=== PATIENT | female | born 1970 | race Caucasian/White ===

== ENCOUNTER → 2017-07-04 | Outpatient (CLI) | payer OTHER ==
[~2017-07-04] MED LIST: CITA40TA4 PO; LEVO75TA3 PO; MELA5TAB15 PO; NAPR1TAB98 PO; NEXI20CA PO
[2017-07-04 13:55] LABS: AUTOMATED NEUTROPHIL # 6.3 TH/MM3 (1.8-7.7); BASOPHIL # 0.1 TH/MM3 (0-0.2); BASOPHIL % 0.8 % (0.0-2.0); EOSINOPHIL # 0.2 TH/MM3 (0-0.4); EOSINOPHIL % 2.2 % (0.0-4.0); HEMATOCRIT 35.5 % (35.0-46.0); HEMO FLAGS DIFF FINAL; LYMPHOCYTE # 3.2 TH/MM3 (1.0-4.8); MEAN CELL VOLUME 74.4 FL (80.0-100.0); MEAN CORPUSCULAR HEMOGLOBIN 23.7 PG (27.0-34.0); MEAN CORPUSCULAR HGB CONC 31.9 % (32.0-36.0); MONO % 6.8 % (0.0-8.0); NEUT % 60.2 % (16.0-70.0); PLATELET COUNT 290 TH/MM3 (150-450); RED BLOOD COUNT 4.78 MIL/MM3 (4.00-5.30); RED CELL DISTRIBUTION WIDTH 15.5 % (11.6-17.2); WHITE BLOOD COUNT 10.5 TH/MM3 (4.0-11.0)
[2017-07-04 14:15] LABS: BLOOD, URINE NEG (NEG); CALCIUM OXALATE CRYSTALS,URINE MANY /hpf; COMMENT (UR) CULT NOT INDICATED; CULTURE IF INDICATED CULT NOT INDICATED; GLUCOSE,URINE NEG (NEG); KETONE, URINE NEG (NEG); MUCUS URINE FEW /lpf (OCC); NITRITE,URINE NEG (NEG); PH, URINE 6.5 (5.0-8.5); SQUAMOUS EPITHELIAL CELL URINE 2 /hpf (0-5); URINE COLOR YELLOW (YELLW/STRAW)
[2017-07-04 14:35] LABS: BETA HCG QUANT LESS THAN 1 MIU/ML (0-5)
--- NOTE | 2017-07-04 15:44 | EKG ---
Date Performed: 07/04/2017 Time Performed: 12:47:00 PTAGE: 47 years EKG: Sinus rhythm NORMAL ECG NO PREVIOUS TRACING DOCTOR: Keron Norris Interpretating Date/Time 07/04/2017 15:42:32
== END ==
LOC: CPRE 13:04
PROVIDERS: ATTEND Obstetrics & Gynecology
DX: Z01.810 Encounter for preprocedural cardiovascular examination (principal); Z01.812 Encounter for preprocedural laboratory examination; N92.4 Excessive bleeding in the premenopausal period
CPT/HCPCS: 36415; 81001; 84702; 85025; 93005

== ENCOUNTER → 2017-07-08 | Day surgery (SDC) | payer OTHER ==
--- NOTE | 2017-07-07 09:44 | MH ---
cc: HENOK ASH M.D. DATE OF ADMISSION: 07/08/2017 ADMISSION DIAGNOSIS Perimenopausal menorrhagia. HISTORY OF PRESENT ILLNESS The patient is 47-year-old white female para 0 who had an Mirena IUD removed on 01/07/2017. FSH level indicated perimenopause. She reports since that time, light bleeding every two weeks, more night sweats, more hot flashes. She is now admitted for hysteroscopy, D&C. PAST MEDICAL HISTORY PREVIOUS SURGERY 1995 laparoscopic cholecystectomy. MEDICATIONS 1. Citalopram. 2. Wellbutrin. 3. Estrace vaginal cream. ALLERGIES None. SERIOUS MEDICAL ILLNESSES Anxiety depression. TRANSFUSIONS None. OB HISTORY None. SOCIAL HISTORY She is , works at [employer]. Alcohol, tobacco and drugs are none. FAMILY HISTORY Non-contributory. PHYSICAL EXAMINATION GENERAL: A well-nourished well-developed white female. VITAL SIGNS: Stable. HEENT: Exam is normal. CHEST: Clear. HEART: Regular rate. BREASTS: Symmetrical. ABDOMEN: Benign. PELVIC EXAM: Normal external genitalia and BUS. Vagina is normal. Cervix is normal. Uterus is normal size and shape, anterior. No adnexal masses. IMAGING STUDIES Her vaginal ultrasound from 06/30/2017 showed a uterus that measured 7.8 cm with probable fibroids. The ovaries appeared normal. PLAN She is now admitted for hysteroscopy and D&C. While in the office I explained the procedures, the risks, benefits and complications. The patient would like to proceed. MD BONI Ambrosio/PAKO /9:21 AM /9:33 AM
[~2017-07-08] VITALS: Ht 177.8 cm; Wt 136.2 kg
[~2017-07-08] MED LIST changes: +ACETAMINOPHEN 1000 MG/100 ML 100 ML IV PRN; +CHLORHEXIDINE GLUCONATE 2 % 1 PACK (2 CLOTHS) TOPICAL PRN; +DEXAMETHASONE SOD PHOS 4 MG/ML VIAL IV ONE; +DO NOT ADM ANY ANTICOAGULANT DRUGS PRN; +INSULIN HUMAN REGULAR 1,000 UNITS/10 ML VIAL SQ PRN; +KETOROLAC TROMETHAMINE 30 MG/ML (IVP) VIAL IV PUSH ONE; +LACTATED RINGER'S 1000 ML IV PRN; +LIDOCAINE HCL 1% PF 5 ML AMPULE OTHER ONE; +METOCLOPRAMIDE HCL 10 MG/2 ML VIAL IV ONE; +METOPROLOL TARTRATE 25 MG TAB PO PRN; +MIDAZOLAM HCL 2 MG/2 ML VIAL IV ONE; +ONDANSETRON HCL 4 MG/2 ML VIAL IV PUSH ONE; +POVIDONE IODINE 5% (ANTISEPSIS KIT) 4 APPLICATIONS EACH NARE PRN; +PROPOFOL 200 MG/20 ML AMP IV ONE; +SODIUM CHLORID 0.9% 500 ML IV PRN; +SUCCINYLCHOLINE CHLORIDE 100 MG/5 ML SYRINGE IV PUSH ONE; +ceFAZolin 1,000 MG/NS 100 ML IV SCH
[2017-07-08 09:45] VITALS: BP 145/82; PULSE 70; RESP 18; TEMP 98.1; O2SAT 98
--- NOTE | 2017-07-08 10:04 | MP ---
cc: HENOK ASH DATE OF SURGERY 07/08/2017 PREOPERATIVE DIAGNOSIS Menorrhagia with fibroids and perimenopause. POSTOPERATIVE DIAGNOSIS Menorrhagia with fibroids and perimenopause. PROCEDURE Hysteroscopy, D&C. ANESTHESIA General ET. SURGEON Henok Ash MD ESTIMATED BLOOD LOSS Less than 20 cc FLUIDS 0.5 liter crystalloid. OBJECTIVE FINDINGS Following the induction of adequate general endotracheal anesthesia, the patient was prepped and draped supine on the operating room table in the dorsal lithotomy position in the usual sterile fashion with the bladder being drained via in and out catheterization. Exam under anesthesia revealed a normal sized and shaped uterus with no adnexal masses. A heavy weighted speculum was placed in the posterior fornix of the vagina, the anterior lip of the cervix grasped with a single-tooth tenaculum. The cervix and uterus sounded to 9 cm. The cervix was dilated to a #19 Hanks dilator. The hysteroscope was passed, revealed endocervix and a slightly irregular intrauterine cavity. The scope was withdrawn, endocervix curettings obtained with a small serrated curet, the endometrium with a small, sharp curet and polyp forceps passed to pick pulling machine operator loose tissue and debris. The cervical tenaculum site was sutured with 2-0 chromic with good hemostasis. All instruments were removed. All counts were correct. The patient's legs were taken down from the stirrups and she was awakened and taken to the recovery room in good condition. Henok Ash MD JAW/SSB /8:01 AM /9:57 AM
== END | disposition home or self-care (01) ==
LOC: HSDC 05:24
PROVIDERS: ATTEND Obstetrics & Gynecology
DX: N92.4 Excessive bleeding in the premenopausal period (principal); D25.9 Leiomyoma of uterus, unspecified; N84.1 Polyp of cervix uteri
CPT/HCPCS: 00952; 58558; 88305; J0131; J0330; J0690; J1100; J1885; J2250; J2405; J3010; J7120

== ENCOUNTER 2017-07-09 03:24 | Observation (INO) | payer OTHER ==
[~2017-07-09] VITALS: Ht 177.8 cm; Wt 130.0 kg
[~2017-07-09 03:24] MED LIST changes: -ACETAMINOPHEN 1000 MG/100 ML 100 ML IV PRN; -CHLORHEXIDINE GLUCONATE 2 % 1 PACK (2 CLOTHS) TOPICAL PRN; -DEXAMETHASONE SOD PHOS 4 MG/ML VIAL IV ONE; -DO NOT ADM ANY ANTICOAGULANT DRUGS PRN; -INSULIN HUMAN REGULAR 1,000 UNITS/10 ML VIAL SQ PRN; -KETOROLAC TROMETHAMINE 30 MG/ML (IVP) VIAL IV PUSH ONE; -LACTATED RINGER'S 1000 ML IV PRN; -LIDOCAINE HCL 1% PF 5 ML AMPULE OTHER ONE; -METOCLOPRAMIDE HCL 10 MG/2 ML VIAL IV ONE; -METOPROLOL TARTRATE 25 MG TAB PO PRN; -MIDAZOLAM HCL 2 MG/2 ML VIAL IV ONE; -ONDANSETRON HCL 4 MG/2 ML VIAL IV PUSH ONE; -POVIDONE IODINE 5% (ANTISEPSIS KIT) 4 APPLICATIONS EACH NARE PRN; -PROPOFOL 200 MG/20 ML AMP IV ONE; -SODIUM CHLORID 0.9% 500 ML IV PRN; -SUCCINYLCHOLINE CHLORIDE 100 MG/5 ML SYRINGE IV PUSH ONE; -ceFAZolin 1,000 MG/NS 100 ML IV SCH
[2017-07-09 03:25] VITALS: BP 182/87; PULSE 76; RESP 16; TEMP 98.7; O2SAT 97
[2017-07-09] MEDS ORDERED: SODIUM CHLOR 0.9% 1000 ML INJ 1,000 ML IV ONE ×2 (04:00→05:30)
[2017-07-09] MEDS ORDERED: LORazepam 2 MG/ML VIAL IV PUSH ONE (04:00)
--- NOTE | 2017-07-09 04:01 | PD ---
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 NOW OVER PAST 2 HOURS PATIENT HAS DEVELOPED ABD WALL AREA SPASM LIKE PAIN, 6/10, INTERMITTENT, AND WORSENED BY MOVEMENT OR TANISHA MUSCLES. PATIENT STATED THAT IN PAST SHE DEVELOPED "RHABDO" DUE TO ANESTHESIA THAT WAS USED, CAN'T RECALL NAME OF MEIDCATION USED THEN OR ON THIS PROCEDURE. ALL:NKDA PMHX: HTN (NOW RESOLVED SINCE WEIGHT LOSS), PSHX: APPY, GB, GASTRECTOMY, RECENTLY D&C PFSH Past Medical History Cancer: No Cardiovascular Problems: No Diabetes: No Diminished Hearing: No Endocrine: Yes Gastrointestinal Disorders: Yes (gerd) Genitourinary: No Hepatitis: No Hiatal Hernia: No Immune Disorder: No Musculoskeletal: Yes (poss prev hx of rhabdo from medications and anesthesia) Neurologic: No Psychiatric: Yes (depression/anxiety) Reproductive: Yes (spotting and something found on recent US per patient unsure what) Respiratory: No Integumentary: Yes (MRSA) Thyroid Disease: Yes Tetanus Vaccination: < 5 Years ?: Not Past Surgical History Abdominal Surgery: Yes (gastrectomy, amanda, appe) AICD: No Cardiac Surgery: No Cholecystectomy: Yes Ear Surgery: No Endocrine Surgery: No Eye Surgery: No Genitourinary Surgery: No Gynecologic Surgery: No Joint Replacement: No Oral Surgery: No Pacemaker: No Thoracic Surgery: No Social History Alcohol Use: No Tobacco Use: No Substance Use: No Allergies-Medications (Allergen,Severity, Reaction): Coded Allergies: No Known Allergies (Verified , 07/08/17) Reported Meds & Prescriptions Reported Meds & Active Scripts Active Reported Melatonin 5 Mg Tab 5 Mg PO HS Aleve PM (Naproxen Sodium-Diphenhydramine) 220-25 Mg Tab 1 Tab PO HS PRN Nexium (Esomeprazole DR) 20 Mg Capdr 20 Mg PO HS Levothyroxine (Levothyroxine Sodium) 75 Mcg Tab 75 Mcg PO DAILY Citalopram (Citalopram Hydrobromide) 40 Mg Tab 40 Mg PO HS Review of Systems Except as stated in HPI: all other systems reviewed are Neg General / Constitutional: No: Fever Eyes: No: Visual changes HENT: No: Headaches Cardiovascular: No: Chest Pain or Discomfort Respiratory: No: Shortness of Breath Gastrointestinal: No: Abdominal Pain Genitourinary: No: Dysuria Musculoskeletal: Positive: Cramping Skin: No Rash Neurologic: No: Weakness Psychiatric: No: Depression Endocrine: No: Polydipsia Hematologic/Lymphatic: No: Easy Bruising Physical Exam Narrative GENERAL: SKIN: Warm and dry. HEAD: Atraumatic. Normocephalic. EYES: Pupils equal and round. No scleral icterus. No injection or drainage. ENT: No nasal bleeding or discharge. Mucous membranes pink and moist. NECK: Trachea midline. No JVD. CARDIOVASCULAR: Regular rate and rhythm. RESPIRATORY: No accessory muscle use. Clear to auscultation. Breath sounds equal bilaterally. GASTROINTESTINAL: Abdomen soft, non-tender, nondistended. MUSCULOSKELETAL: Extremities without clubbing, cyanosis, or edema. No obvious deformities. NEUROLOGICAL: Awake and alert. No obvious cranial nerve deficits. Motor grossly within normal limits. Five out of 5 muscle strength in the arms and legs. Normal speech. PSYCHIATRIC: Appropriate mood and affect; insight and judgment normal. Data Data Last Documented VS Orders Orders Complete Blood Count With Diff (07/09/17 03:51) Comprehensive Metabolic Panel (07/09/17 03:51) Creatine Kinase (Cpk) (07/09/17 03:51) Lipase (07/09/17 03:51) Ct Abd/Pel W/O Iv Contrast (07/09/17 03:51) Iv Access Insert/Monitor (07/09/17 03:51) Lorazepam Inj (Ativan Inj) (07/09/17 04:00) Sodium Chlor 0.9% 1000 Ml Inj (Ns 1000 M (07/09/17 04:00) CKMB (07/09/17 04:00) CKMB% (07/09/17 04:00) Sodium Chlor 0.9% 1000 Ml Inj (Ns 1000 M (07/09/17 05:30) Creatine Kinase (Cpk) (07/09/17 05:30) CKMB (07/09/17 06:15) CKMB% (07/09/17 06:15) Admit Order (Ed Use Only) (07/09/17 07:02) Labs Laboratory Tests Test 07/09/17 04:00 07/09/17 06:15 White Blood Count 14.3 TH/MM3 Red Blood Count 4.64 MIL/MM3 Hemoglobin 11.2 GM/DL Hematocrit 34.3 % Mean Corpuscular Volume 74.0 FL Mean Corpuscular Hemoglobin 24.1 PG Mean Corpuscular Hemoglobin Concent 32.5 % Red Cell Distribution Width 15.5 % Platelet Count 255 TH/MM3 Mean Platelet Volume 8.4 FL Neutrophils (%) (Auto) 73.4 % Lymphocytes (%) (Auto) 20.4 % Monocytes (%) (Auto) 5.0 % Eosinophils (%) (Auto) 0.2 % Basophils (%) (Auto) 1.0 % Neutrophils # (Auto) 10.5 TH/MM3 Lymphocytes # (Auto) 2.9 TH/MM3 Monocytes # (Auto) 0.7 TH/MM3 Eosinophils # (Auto) 0.0 TH/MM3 Basophils # (Auto) 0.1 TH/MM3 CBC Comment DIFF FINAL Differential Comment Blood Urea Nitrogen 7 MG/DL Creatinine 0.75 MG/DL Random Glucose 118 MG/DL Total Protein 7.1 GM/DL Albumin 3.5 GM/DL Calcium Level 8.8 MG/DL Alkaline Phosphatase 66 U/L Aspartate Amino Transf (AST/SGOT) 47 U/L Alanine Aminotransferase (ALT/SGPT) 32 U/L Total Bilirubin 0.3 MG/DL Sodium Level 139 MEQ/L Potassium Level 3.8 MEQ/L Chloride Level 106 MEQ/L Carbon Dioxide Level 24.5 MEQ/L Anion Gap 9 MEQ/L Estimat Glomerular Filtration Rate 83 ML/MIN Total Creatine Kinase 2248 U/L 2185 U/L Creatine Kinase MB 11.8 NG/ML 11.9 NG/ML Creatine Kinase MB % 0.5 % 0.5 % Lipase 81 U/L [facility] Medical Decision Making Medical Screen Exam Complete: Yes Emergency Medical Condition: Yes Medical Record Reviewed: Yes Differential Diagnosis RHABDO V HYPERKALEMIA/HYPOKALEMIA V MUSCLE SPASMS V PERF BOWEL V SBO Narrative Course PATIENT FOUND TO HAVE CPK 2200, ALONG WITH JUMPY CRAMPY PAIN, C/W EARLY RHABDOMYOLYSIS. patinet treated with ivf and bzd...on repeat cpk negligible decrease so will admit to dr silva for obs and further treatment. Physician Communication Physician Communication D/W DR DEAN WHO REQUESTED REPEAT CPK AFTER HYDRATION, TO CHECK DELTA, IF INCREASING DELTA WILL ADMIT FOR FURTHER CARE BUT IF TRENDING DOWN OK FOR D/C Diagnosis Primary Impression: EARLY RHABDOMYOLYSIS Admitting Information Admitting Physician Requests: Observation Patient Instructions: General Instructions, Rhabdomyolysis (ED) Jesu Nance MD Jul 09, 2017 04:01
[2017-07-09 04:19] LABS: AUTOMATED NEUTROPHIL # 10.5 TH/MM3 (1.8-7.7); BASOPHIL # 0.1 TH/MM3 (0-0.2); EOSINOPHIL % 0.2 % (0.0-4.0); HEMATOCRIT 34.3 % (35.0-46.0); HEMO FLAGS DIFF FINAL; LYMPH % 20.4 % (9.0-44.0); LYMPHOCYTE # 2.9 TH/MM3 (1.0-4.8); MEAN CORPUSCULAR HEMOGLOBIN 24.1 PG (27.0-34.0); MEAN CORPUSCULAR HGB CONC 32.5 % (32.0-36.0); NEUT % 73.4 % (16.0-70.0); PLATELET COUNT 255 TH/MM3 (150-450); RED BLOOD COUNT 4.64 MIL/MM3 (4.00-5.30); RED CELL DISTRIBUTION WIDTH 15.5 % (11.6-17.2); WHITE BLOOD COUNT 14.3 TH/MM3 (4.0-11.0)
[2017-07-09 04:36] LABS: ANION GAP 9 MEQ/L (5-15); AST (GOT) 47 U/L (15-37); BICARBONATE 24.5 MEQ/L (21.0-32.0); BLOOD UREA NITROGEN 7 MG/DL (7-18); CHLORIDE 106 MEQ/L (98-107); GLOMERULAR FILTRATION RATE 83 ML/MIN (>89); POTASSIUM 3.8 MEQ/L (3.5-5.1); SODIUM (NA) 139 MEQ/L (136-145)
[2017-07-09 04:37] LABS: ALT (GPT) 32 U/L (10-53)
--- NOTE | 2017-07-09 04:43 | RADRPT ---
EXAM DATE/TIME: 07/09/2017 04:31 [place] COMPARISON: No previous studies available for comparison. INDICATIONS : Upper abdomen pain . 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 ORAL CONTRAST: No oral contrast ingested. RADIATION DOSE: 33.78 CTDIvol (mGy) ; Patient body habitus MEDICAL HISTORY : Hypertension. Gastroesophageal reflux disease. SURGICAL HISTORY : Appendectomy. Cholecystectomy. ENCOUNTER: Initial ACUITY: 1 day PAIN SCALE: 6/10 LOCATION: abdomen TECHNIQUE: Volumetric scanning of the abdomen and pelvis was performed. Using automated exposure control and ad justment of the mA and/or kV according to patient size, radiation dose was kept as low as reasonably achievable to obtain optimal diagnostic quality images. DICOM format image data is available electro nically for review and comparison. FINDINGS: Examination of the lung bases demonstrates no abnormality. No pleural fluid is identified. No pulmona ry nodules are present. A small hiatal hernia is present. The liver and spleen are normal in size and no focal defects are identified. The gallbladder and pancreas are unremarkable. No intrahepatic or e xtrahepatic ductal dilatation is seen. The gallbladder is absent. The pancreas demonstrates normal co ntour without evidence of mass or ductal dilatation. The adrenal glands and kidneys appear normal kim aterally. No hydronephrosis or mass lesions are identified. A small fat-containing umbilical hernia i s present. Examination of the pelvis demonstrates no evidence of free fluid or pelvic mass. No abnormally enlarg ed inguinal or retroperitoneal lymph nodes are present. The bladder is unremarkable. Examination of t he right lower quadrant demonstrates no abnormality. The appendix is identified and appears normal. CONCLUSION: 1. No evidence of acute abdominal or pelvic process. No masses are identified. 2. Small hiatal hernia 3. Small fat-containing umbilical hernia Michael Shine MD on July 09, 2017 at 4:39 Board Certified Radiologist. This report was verified electronically.
[2017-07-09 04:51] LABS: ALKALINE PHOSPHATASE 66 U/L (45-117); CREATINE KINASE 2248 U/L (26-192); TOTAL BILIRUBIN ADULT 0.3 MG/DL (0.2-1.0)
[2017-07-09 05:08] LABS: CKMB 11.8 NG/ML (0.5-3.6)
[2017-07-09 05:33] VITALS: BP 148/67; PULSE 72; RESP 16; O2SAT 100
[2017-07-09 07:04] LABS: CKMB 11.9 NG/ML (0.5-3.6)
[2017-07-09] MEDS ORDERED: ONDANSETRON HCL 4 MG/2 ML VIAL IV PRN (08:00)
[2017-07-09] MEDS ORDERED: ACETAMINOPHEN 325 MG TAB PO PRN (08:00)
[2017-07-09 09:00] VITALS: BP 140/68; PULSE 68; RESP 16; O2SAT 100
[2017-07-09] MEDS: LEVOTHYROXINE SODIUM 75 MCG TAB PO SCH (09:26)
[2017-07-09] MEDS ORDERED: ALPRAZolam 0.5 MG TAB PO PRN (09:30)
[2017-07-09] MEDS: SODIUM CHLOR 0.9% 1000 ML INJ 1,000 ML IV SCH ×2 (09:41→17:33)
--- NOTE | 2017-07-09 10:00 | HHI.HP ---
HPI Service [facility] Hospitalists Primary Care Physician MD Dr. Sendy Oreilly Admission Diagnosis EARLY RHABDOMYOLYSIS Chief Complaint: Muscle cramps Travel History International Travel<30 Days: No Contact w/Intl Traveler <30 Da: No Traveled to Known Affected Are: No History of Present Illness Mrs. Rossi is a pleasant 47 y/o WF with hypothyroidism, anxiety and GERD. She presented to the ED at [facility] [place] on 07/09/17 with complaints of generalized muscle aching and pain. On 07/08/17 she underwent a hysteroscopy and D&C with Dr. Checo Posada for menorrhagia with fibroids and perimenopause. She did receive general anesthesia for the procedure. She states that 6 years ago she had gastric sleeve surgery and post-operative she developed rhabdomyolysis which prolonged her hospital admission at that time. She states that the Rhabdo was attributed to the anesthesia she received during surgery. Pt improved clinically and has not had any issues since that time. Pt states that after her procedure yesterday she went home and started feeling muscle pain/spasms in the upper abdomen, legs, arms, and neck and felt that she had difficulty swallowing. This prompted her to come to the ED for further evaluation. Her labs in the ED noted WBC count 14.3, total CK 2248, CK-MB 11.8. She received IVF in the ED. She is being admitted for continued IVF and observation. Review of Systems Constitutional: DENIES: Diaphoretic episodes, Fever, Weight loss, Chills, Dizziness Eyes: DENIES: Vision loss Ears, nose, mouth, throat: DENIES: Hearing loss Respiratory: DENIES: Cough, Shortness of breath Cardiovascular: DENIES: Chest pain Gastrointestinal: COMPLAINS OF: Abdominal pain Genitourinary: DENIES: Urinary frequency, Urinary incontinence, Urgency Musculoskeletal: COMPLAINS OF: Muscle aches, Neck pain Integumentary: DENIES: Rash Neurologic: DENIES: Abnormal gait, Headache, Paresthesias, Speech Problems Psychiatric: DENIES: Confusion Past Family Social History Past Medical History Hypothyroidism GERD Anxiety/Depression Uterine fibroids/menorrhagia/perimenopause Past Surgical History D&C/hysteroscopy on 07/08/[address] Posada Sleeve [place] [address] [place] in [place] Laparoscopic cholecystectomy Appendectomy Reported Medications Melatonin 5 Mg PO HS Aleve PM 220-25 Mg Tab 1 Tab PO HS PRN Nexium 20 Mg PO HS Levothyroxine 75 Mcg PO DAILY Citalopram 40 Mg PO HS Allergies: Coded Allergies: No Known Allergies (Verified , 07/08/17) Family History Father with diabetes Grandmother with hx of ovarian cancer Social History Denies any alcohol, tobacco or illicit drug use Pt is , she has 4 adopted children Physical Exam Vital Signs Vital Signs Date Time Temp Pulse Resp B/P (MAP) Pulse Ox O2 Delivery O2 Flow Rate FiO2 07/09/17 05:33 72 16 148/67 (94) 100 Room Air 07/09/17 03:25 98.7 76 16 182/87 (118) 97 Room Air Physical Exam GENERAL: This is a well-nourished, well-developed patient, in no apparent distress. HEENT: Atraumatic. Normocephalic. No temporal or scalp tenderness. No scleral icterus. Airway patent. NECK: Trachea midline, supple, nontender. CARDIO: Regular. RESP: CTA bilaterally. No wheezes, rales, or rhonchi. ABD: +BS, soft, non-tender, nondistended. EXT: Extremities without clubbing, cyanosis, or edema. NEURO: Awake and alert. Motor and sensory grossly within normal limits. Normal speech. Laboratory Laboratory Tests Test 07/09/17 04:00 07/09/17 06:15 White Blood Count 14.3 Red Blood Count 4.64 Hemoglobin 11.2 Hematocrit 34.3 Mean Corpuscular Volume 74.0 Mean Corpuscular Hemoglobin 24.1 Mean Corpuscular Hemoglobin Concent 32.5 Red Cell Distribution Width 15.5 Platelet Count 255 Mean Platelet Volume 8.4 Neutrophils (%) (Auto) 73.4 Lymphocytes (%) (Auto) 20.4 Monocytes (%) (Auto) 5.0 Eosinophils (%) (Auto) 0.2 Basophils (%) (Auto) 1.0 Neutrophils # (Auto) 10.5 Lymphocytes # (Auto) 2.9 Monocytes # (Auto) 0.7 Eosinophils # (Auto) 0.0 Basophils # (Auto) 0.1 CBC Comment DIFF FINAL Differential Comment Blood Urea Nitrogen 7 Creatinine 0.75 Random Glucose 118 Total Protein 7.1 Albumin 3.5 Calcium Level 8.8 Alkaline Phosphatase 66 Aspartate Amino Transf (AST/SGOT) 47 Alanine Aminotransferase (ALT/SGPT) 32 Total Bilirubin 0.3 Sodium Level 139 Potassium Level 3.8 Chloride Level 106 Carbon Dioxide Level 24.5 Anion Gap 9 Estimat Glomerular Filtration Rate 83 Total Creatine Kinase 2248 2185 Creatine Kinase MB 11.8 11.9 Creatine Kinase MB % 0.5 0.5 Lipase 81 Result Diagram: 07/09/1739907/09/17399 Imaging Last Impressions Abdomen/Pelvis CT 07/09/17 0351 Signed Impressions: Service Date/Time: Sunday, July 09, 2017 04:31 - CONCLUSION: 1. No evidence of acute abdominal or pelvic process. No masses are identified. 2. Small hiatal hernia 3. Small fat-containing umbilical hernia Michael Shine MD Septic Shock Reassessment Heart: Regular rate and rhythm Lungs: Clear Skin: Warm Caprini VTE Risk Assessment Caprini VTE Risk Assessment: No/Low Risk (score <= 1) Caprini Risk Assessment Model Point Value = 1 Point Value = 2 Point Value = 3 Point Value = 5 Age 41-60 Minor surgery BMI > 25 kg/m2 Swollen legs Varicose veins or History of unexplained or recurrent spontaneous Oral contraceptives or hormone replacement Sepsis (< 1 month) Serious lung disease, including pneumonia (< 1 month) Abnormal pulmonary function Acute myocardial infarction Congestive heart failure (< 1 month) History of inflammatory bowel disease Medical patient at bed rest Age 61-74 Arthroscopic surgery Major open surgery (> 45 min) Laparoscopic surgery (> 45 min) Malignancy Confined to bed (> 72 hours) Immobilizing plaster cast Central venous access Age >= 75 History of VTE Family history of VTE Factor V Leiden Prothrombin [id number] Lupus anticoagulant Anticardiolipin antibodies Elevated serum homocysteine Heparin-induced thrombocytopenia Other congenital or acquired thrombophilia Stroke (< 1 month) Elective arthroplasty Hip, pelvis, or leg fracture Acute spinal cord injury (< 1 month) Prophylaxis Regimen Total Risk Factor Score Risk Level Prophylaxis Regimen 0-1 Low Early ambulation 2 Moderate Order ONE of the following: *Sequential Compression Device (SCD) *Heparin 5000 units SQ BID 3-4 Higher Order ONE of the following medications: *Heparin 5000 units SQ TID *Enoxaparin/Lovenox 40 mg SQ daily (WT < 150 kg, CrCl > 30 mL/min) *Enoxaparin/Lovenox 30 mg SQ daily (WT < 150 kg, CrCl > 10-29 mL/min) *Enoxaparin/Lovenox 30 mg SQ BID (WT < 150 kg, CrCl > 30 mL/min) AND/OR *Sequential Compression Device (SCD) 5 or more Highest Order ONE of the following medications: *Heparin 5000 units SQ TID (Preferred with Epidurals) *Enoxaparin/Lovenox 40 mg SQ daily (WT < 150 kg, CrCl > 30 mL/min) *Enoxaparin/Lovenox 30 mg SQ daily (WT < 150 kg, CrCl > 10-29 mL/min) *Enoxaparin/Lovenox 30 mg SQ BID (WT < 150 kg, CrCl > 30 mL/min) AND *Sequential Compression Device (SCD) Assessment and Plan Problem List: (1) Rhabdomyolysis ICD Codes: M62.82 - Rhabdomyolysis Status: Acute Plan: - Pt is a 47 y/o WF with hypothyroidism, anxiety and GERD. - She presented to the ED at [facility] [place] on 07/09/17 with complaints of generalized muscle aching and pain. - On 07/08/17 she underwent a hysteroscopy and D&C with Dr. Checo Posada for menorrhagia with fibroids and perimenopause and she received general anesthesia for the procedure. Post- procedurally after she went home and started feeling muscle pain/spasms in the upper abdomen, legs, arms, and neck and felt that she had difficulty swallowing. Pt previously developed rhabdomyolysis after her gastric sleeve surgery and she states that the Rhabdo was attributed to the anesthesia she received during surgery at that time. - Her labs in the ED noted WBC count 14.3, total CK 2248, CK-MB 11.8. - CT Abd/pelvis (07/09) --> No evidence of acute abdominal or pelvic process. No masses are identified. Small hiatal hernia. Small fat-containing umbilical hernia - She received IVF in the ED and was admitted for continued IVF and observation. - Cont. IVF - Repeat CK levels for this afternoon and tomorrow morning. - Encouraged oral intake - Monitor BMP in AM - Supportive care - If labs are improving in AM we will plan for discharge tomorrow morning. - DVT prophylaxis (2) Anxiety ICD Codes: F41.9 - Anxiety disorder, unspecified Status: Chronic Plan: - Xanax PRN (3) Hypothyroidism ICD Codes: E03.9 - Hypothyroidism, unspecified Status: Chronic Plan: - Home meds continued (4) GERD (gastroesophageal reflux disease) ICD Codes: K21.9 - Gastro-esophageal reflux disease without esophagitis Status: Chronic Plan: - Home meds continued Problem Qualifiers (1) Rhabdomyolysis: Qualified Codes: M62.82 - Rhabdomyolysis Malini Elder Jul 09, 2017 10:00
[2017-07-09 12:54] VITALS: BP 162/80; PULSE 61; RESP 24; TEMP 99; O2SAT 97
[2017-07-09] MEDS: ACETAMINOPHEN/HYDROcodone 325 MG/5 MG TAB PO PRN ×2 (13:26→21:07)
[2017-07-09 15:20] VITALS: BP 176/80; PULSE 67; RESP 20; TEMP 98.3; O2SAT 96
[2017-07-09 20:28] VITALS: BP 132/65; PULSE 65; RESP 18; TEMP 98.9; O2SAT 99
[2017-07-09] MEDS ORDERED: PANTOPRAZOLE SOD 20 MG DELAYED RELEASE TAB PO SCH (21:00)
[2017-07-09] MEDS ORDERED: MELATONIN 5 MG TAB PO SCH (21:00)
[2017-07-09] MEDS ORDERED: CITALOPRAM HYDROBROMIDE 40 MG TAB PO SCH (21:00)
[2017-07-10 00:14] VITALS: BP 153/74; PULSE 56; RESP 19; TEMP 97.2; O2SAT 98
[2017-07-10] MEDS: SODIUM CHLOR 0.9% 1000 ML INJ 1,000 ML IV SCH ×2 (02:44→07:58)
[2017-07-10] MEDS: ACETAMINOPHEN/HYDROcodone 325 MG/5 MG TAB PO PRN (03:00)
[2017-07-10 04:39] VITALS: BP 155/85; PULSE 67; RESP 18; TEMP 99; O2SAT 96
[2017-07-10] MEDS: LEVOTHYROXINE SODIUM 75 MCG TAB PO SCH (06:57)
[2017-07-10 07:30] VITALS: BP 191/95; PULSE 56; RESP 22; TEMP 98.5; O2SAT 98
--- NOTE | 2017-07-10 08:43 | HHI.PR ---
Subjective Remarks Pt overall is feeling better this morning She has not had her labs drawn yet this morning Pt has been ambulating to the bathroom with minimal discomfort Objective Vitals Vital Signs Date Time Temp Pulse Resp B/P (MAP) Pulse Ox O2 Delivery O2 Flow Rate FiO2 07/10/17 07:30 98.5 56 22 191/95 (127) 98 07/10/17 04:39 99.0 67 18 155/85 (108) 96 07/10/17 04:05 12 07/10/17 00:14 97.2 56 19 153/74 (100) 98 07/09/17 20:28 98.9 65 18 132/65 (87) 99 07/09/17 15:20 98.3 67 20 176/80 (112) 96 07/09/17 12:54 99.0 61 24 162/80 (107) 97 07/09/17 12:52 07/09/17 09:26 16 07/09/17 09:00 68 16 140/68 (92) 100 Room Air 07/10/17 07/10/17 07/11/17 15:00 23:00 07:00 # Voids 1 Result Diagram: 07/09/17 0400 07/09/17 0400 Other Results Laboratory Tests Test 07/09/17 04:00 07/09/17 06:15 07/09/17 15:59 White Blood Count 14.3 TH/MM3 Red Blood Count 4.64 MIL/MM3 Hemoglobin 11.2 GM/DL Hematocrit 34.3 % Mean Corpuscular Volume 74.0 FL Mean Corpuscular Hemoglobin 24.1 PG Mean Corpuscular Hemoglobin Concent 32.5 % Red Cell Distribution Width 15.5 % Platelet Count 255 TH/MM3 Mean Platelet Volume 8.4 FL Neutrophils (%) (Auto) 73.4 % Lymphocytes (%) (Auto) 20.4 % Monocytes (%) (Auto) 5.0 % Eosinophils (%) (Auto) 0.2 % Basophils (%) (Auto) 1.0 % Neutrophils # (Auto) 10.5 TH/MM3 Lymphocytes # (Auto) 2.9 TH/MM3 Monocytes # (Auto) 0.7 TH/MM3 Eosinophils # (Auto) 0.0 TH/MM3 Basophils # (Auto) 0.1 TH/MM3 CBC Comment DIFF FINAL Differential Comment Blood Urea Nitrogen 7 MG/DL Creatinine 0.75 MG/DL Random Glucose 118 MG/DL Total Protein 7.1 GM/DL Albumin 3.5 GM/DL Calcium Level 8.8 MG/DL Alkaline Phosphatase 66 U/L Aspartate Amino Transf (AST/SGOT) 47 U/L Alanine Aminotransferase (ALT/SGPT) 32 U/L Total Bilirubin 0.3 MG/DL Sodium Level 139 MEQ/L Potassium Level 3.8 MEQ/L Chloride Level 106 MEQ/L Carbon Dioxide Level 24.5 MEQ/L Anion Gap 9 MEQ/L Estimat Glomerular Filtration Rate 83 ML/MIN Total Creatine Kinase 2248 U/L 2185 U/L 2090 U/L Creatine Kinase MB 11.8 NG/ML 11.9 NG/ML 8.0 NG/ML Creatine Kinase MB % 0.5 % 0.5 % 0.4 % Lipase 81 U/L Imaging Last Impressions Abdomen/Pelvis CT 07/09/17 0351 Signed Impressions: Service Date/Time: Friday, July 09, 2017 04:31 - CONCLUSION: 1. No evidence of acute abdominal or pelvic process. No masses are identified. 2. Small hiatal hernia 3. Small fat-containing umbilical hernia Michael Shine MD Objective Remarks General: NAD, AAOx3 Chest: CTA Cardiac: Regular Abd: +BS, soft ND/NT Ext: No edema A/P Problem List: (1) Rhabdomyolysis ICD Codes: M62.82 - Rhabdomyolysis Status: Acute Plan: - Pt is a 47 y/o WF with hypothyroidism, anxiety and GERD. - She presented to the ED at [facility] [place] on 07/09/17 with complaints of generalized muscle aching and pain. - On 07/08/17 she underwent a hysteroscopy and D&C with Dr. Checo Posada for menorrhagia with fibroids and perimenopause and she received general anesthesia for the procedure. Post- procedurally after she went home and started feeling muscle pain/spasms in the upper abdomen, legs, arms, and neck and felt that she had difficulty swallowing. Pt previously developed rhabdomyolysis after her gastric sleeve surgery and she states that the Rhabdo was attributed to the anesthesia she received during surgery at that time. - Her labs in the ED noted WBC count 14.3, total CK 2248, CK-MB 11.8. - CT Abd/pelvis (07/09) --> No evidence of acute abdominal or pelvic process. No masses are identified. Small hiatal hernia. Small fat-containing umbilical hernia - She received IVF in the ED and was admitted for continued IVF and observation. - Repeat CK levels for this morning are pending - Encouraged oral intake - Pt is overall improving clinically and is ambulating with minimal discomfort and urinating adequately - If labs are improving this AM we will plan for discharge today (2) Anxiety ICD Codes: F41.9 - Anxiety disorder, unspecified Status: Chronic Plan: - Xanax PRN (3) Hypothyroidism ICD Codes: E03.9 - Hypothyroidism, unspecified Status: Chronic Plan: - Home meds continued (4) GERD (gastroesophageal reflux disease) ICD Codes: K21.9 - Gastro-esophageal reflux disease without esophagitis Status: Chronic Plan: - Home meds continued Assessment and Plan Patient examined. Assessment and plan formulated with Malini Elder PA-C. I agree with the above. rhabdo felt related to anesthesia. she has hx of the same. doing very well. ck trending down. 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 Problem Qualifiers (1) Rhabdomyolysis: Qualified Codes: M62.82 - Rhabdomyolysis Malini Elder Jul 10, 2017 08:43 Juan Montoya MD Jul 10, 2017 10:55
--- NOTE | 2017-07-10 08:44 | HHI.DCPOC ---
Discharge Care Plan Diagnosis: (1) Rhabdomyolysis (2) GERD (gastroesophageal reflux disease) (3) Hypothyroidism (4) Anxiety Goals to Promote Your Health Pt was given Succinylcholine, Versed and Propofol for anesthesia Directions to Meet Your Goals Take your medications as prescribed Follow your dietary instruction Follow activity as directed Keep your appointments as scheduled Take your immunizations and boosters as scheduled If your symptoms worsen call your PCP, if no PCP go to Urgent Care Center or Emergency Room Smoking is Dangerous to Your Health. Avoid second hand smoke Call the 24-hour hour crisis hotline for domestic abuse at Malini Elder Jul 10, 2017 08:44
[2017-07-10 08:55] VITALS: BP 175/86; PULSE 53
[2017-07-10 09:37] LABS: AUTOMATED NEUTROPHIL # 4.6 TH/MM3 (1.8-7.7); BASOPHIL # 0.1 TH/MM3 (0-0.2); BASOPHIL % 1.2 % (0.0-2.0); EOSINOPHIL # 0.2 TH/MM3 (0-0.4); EOSINOPHIL % 2.7 % (0.0-4.0); HEMATOCRIT 32.6 % (35.0-46.0); HEMO FLAGS DIFF FINAL; LYMPH % 39.5 % (9.0-44.0); LYMPHOCYTE # 3.6 TH/MM3 (1.0-4.8); MEAN CELL VOLUME 74.4 FL (80.0-100.0); MEAN CORPUSCULAR HEMOGLOBIN 24.1 PG (27.0-34.0); MEAN CORPUSCULAR HGB CONC 32.4 % (32.0-36.0); MONO % 6.4 % (0.0-8.0); NEUT % 50.2 % (16.0-70.0); PLATELET COUNT 242 TH/MM3 (150-450); RED BLOOD COUNT 4.38 MIL/MM3 (4.00-5.30); RED CELL DISTRIBUTION WIDTH 15.8 % (11.6-17.2); WHITE BLOOD COUNT 9.1 TH/MM3 (4.0-11.0)
[2017-07-10 10:10] LABS: BICARBONATE 25.7 MEQ/L (21.0-32.0); POTASSIUM 3.6 MEQ/L (3.5-5.1)
[2017-07-10 10:49] LABS: CKMB 4.6 NG/ML (0.5-3.6)
== END 2017-07-10 12:08 | disposition home or self-care (01) ==
LOC: NEPC 03:24 → NEDA 07:04 → NEPHCDU 12:35
PROVIDERS: ADMIT Hospitalist; ATTEND Hospitalist
DX: M62.82 Rhabdomyolysis (principal); E03.9 Hypothyroidism, unspecified; F41.9 Anxiety disorder, unspecified; K21.9 Gastro-esophageal reflux disease without esophagitis; K44.9 Diaphragmatic hernia without obstruction or gangrene; K42.9 Umbilical hernia without obstruction or gangrene; Z79.899 Other long term (current) drug therapy
CPT/HCPCS: 74176; 80048; 80053; 82550; 82552; 83690; 85025; 96361; 96374; 99285; G0378; J2060; J7030